=== PATIENT | male | born 1995 | race Caucasian/White ===

== ENCOUNTER 2023-03-19 09:38 | Emergency (ER) | payer BC, SELFPAY ==
[~2023-03-19] VITALS: Ht 177.8 cm; Wt 85.0 kg
[2023-03-19 12:32] LABS: BASO # 0.1 10^3/uL (0.0-0.2); BASO % 0.4 % (0.0-1.0); EOS % 0.2 % (0.0-3.0); HEMATOCRIT 39.2 % (42.0-52.0); HEMOGLOBIN 13.3 g/dl (13.5-17.5); LYMPH # 1.3 10^3/uL (1.5-5.0); LYMPH % 10.7 % (24.0-44.0); MEAN CORPUSCULAR HEMOGLOBIN 31.6 pg (27.0-33.0); MEAN CORPUSCULAR HGB CONC 33.9 g/dl (32.0-36.5); MEAN CORPUSCULAR VOLUME 93.1 fl (80.0-96.0); MONO # 0.4 10^3/uL (0.0-0.8); MONO % 3.2 % (2.0-8.0); NEUTROPHILS # 10.2 10^3/uL (1.5-8.5); PLATELET COUNT, AUTOMATED 228 10^3/uL (150-450); RED BLOOD COUNT 4.21 10^6/uL (4.30-6.10)
[2023-03-19 12:56] LABS: LIPASE 29 U/L (12-53)
[2023-03-19 12:58] LABS: ALBUMIN 3.3 G/DL (3.2-5.2); ALKALINE PHOSPHATASE 113 U/L (46-116); ALT/SGPT 45 U/L (7.0-40); AST/SGOT 19 U/L (<34); BILIRUBIN,DIRECT 0.4 MG/DL (<0.4); BILIRUBIN,TOTAL 0.9 MG/DL (0.3-1.2); BLOOD UREA NITROGEN 12 MG/DL (9-23); CALCIUM LEVEL 8.9 MG/DL (8.5-10.1); CARBON DIOXIDE LEVEL 29 MMOL/L (20-31); CHLORIDE LEVEL 103 MMOL/L (98-107); CREATININE FOR GFR 0.94 MG/DL (0.70-1.30); GLOMERULAR FILTRATION RATE > 60.0 (>60); GLUCOSE, FASTING 135 MG/DL (60-100); POTASSIUM SERUM 3.9 MMOL/L (3.5-5.1); SODIUM LEVEL 140 MMOL/L (136-145); TOTAL PROTEIN 6.6 G/DL (5.7-8.2)
[2023-03-19] MEDS ORDERED: ISOVUE-370 76% 100ML VIAL As Ordered ONE (13:10)
[2023-03-19 13:26] LABS: HIV 1&2 SCREEN NEGATIVE (NEGATIVE)
[2023-03-19 14:10] VITALS: BP 116/65; TEMP 98.5; O2SAT 98
[2023-03-19] MEDS ORDERED: DOXY-443 PO (15:06)
[2023-03-19] MEDS ORDERED: DOXYCYCLINE HYCLATE 100MG TABLET PO ONE (15:10)
[2023-03-22 11:08] LABS: BABESIA MICROTI PCR Negative (Negative); ROCKY MTN SPOTTED FEVER IgM 0.29 index (0.00-0.89)
== END 2023-03-19 15:20 | disposition home or self-care (01) ==
LOC: M ED 09:38
DX: A69.20 Lyme disease, unspecified (principal); F17.220 Nicotine dependence, chewing tobacco, uncomplicated; Z79.2 Long term (current) use of antibiotics
CPT/HCPCS: 36415; 70450; 71260; 80048; 80076; 83605; 83690; 85025; 86140; 86618; 86757; 87040; 87389; 87469; 87486; 87581; 87633; 87798; 99284; Q9967